=== PATIENT | female | born 1965 | race Caucasian/White ===

== ENCOUNTER 2017-06-07 06:36 | Day surgery (SDC) | payer BC ==
[2017-06-07] MEDS ORDERED: Lactated Ringers 1,000 ML IV SCH (06:45)
[2017-06-07] MEDS ORDERED: Promethazine 25 MG/ML SDV IV ONE (08:00)
[2017-06-07] MEDS ORDERED: Propofol 200 MG/20 ML SDV IV ONE (08:00)
[2017-06-07] MEDS ORDERED: Ondansetron 4 MG/2 ML SDV IVPUSH ONE (08:00)
--- NOTE | 2017-06-07 08:31 | PCM.OPNOTE ---
- General Post-Op/Procedure Note Date of Surgery/Procedure: 06/07/17 Operative Procedure(s): c scope with bx Findings: ascending colon polyp x2 Pre Op Diagnosis: screening Post-Op Diagnosis: ascending colon polyp x2 Anesthesia Technique: MAC Primary Surgeon: Natan Sorensen Anesthesia Provider: Gennaro Link Pathology: ascending colon polyp x2 Complications: None Condition: Good Free Text/Narrative:: see dictation
[2017-06-07 10:26] VITALS: BP 123/62
--- NOTE | 2017-06-07 14:21 | OR ---
DATE OF OPERATION: 06/07/2017 SURGEON: Natan Sorensen MD PROCEDURE PERFORMED: Colonoscopy with cold forceps biopsy. PREOPERATIVE DIAGNOSIS: Colon cancer screening. POSTOPERATIVE DIAGNOSIS: Colon cancer polyps x2. INDICATIONS FOR PROCEDURE: This is a 52-year-old white female who presents for initial screening colonoscopy. She was offered and accepted the same. DESCRIPTION OF OPERATION: After an excellent IV sedation was administered, digital rectal exam was performed without any marked abnormality noted. The flexible colonoscope was inserted and advanced to the cecum without difficulty. The prep was good. There were some areas that we had to irrigate, but we did get an excellent view of the colon. The following findings were noted, ascending colon, some new polypoid lesions, biopsied, submitted in 1 container. Transverse colon was unremarkable. Descending colon was unremarkable. Sigmoid and rectum was unremarkable. The colon was deflated. The scope was removed. The patient tolerated the procedure well and was taken to recovery room in good condition. /[id number] ROULA/ANATOLIY
== END 2017-06-07 10:04 | disposition home or self-care (01) ==
LOC: FB.SDS 06:36
PROVIDERS: ATTEND Surgery
DX: Z12.11 Encounter for screening for malignant neoplasm of colon (principal); K63.5 Polyp of colon; D64.9 Anemia, unspecified; Z86.14 Personal history of Methicillin resistant Staphylococcus aureus infection; Z79.899 Other long term (current) drug therapy
CPT/HCPCS: 45380; 81025; 88305; J2405; J2550; J2704; J7120